=== PATIENT | female | born 1950 | race Caucasian/White ===

== ENCOUNTER → 2016-08-25 | Outpatient (CLI) | payer OTHER, MEDICARE ==
[~2016-08-25] MED LIST: ASCO1CAP3 PO; CALC500C70 PO; DIPH25CA65 PO; HYPEPOW8 NAE; MONT1TAB3 PO; MULT-506 PO; OFLO0.3D4 OT; OMEG10007 PO; SALI0.6517 NAE
--- NOTE | 2016-08-25 15:37 | MAMMOGRAPHY REPORT ---
BILATERAL DIGITAL SCREENING MAMMOGRAM WITH CAD: 08/25/2016 CLINICAL HISTORY: Routine screening. Patient has no complaints. TECHNIQUE: Bilateral CC and MLO views were obtained. Current study was also evaluated with a Compute r Aided Detection (CAD) system. COMPARISON: Comparison is made to exams dated: 08/23/2015 mammogram, 07/01/2013 mammogram, 08/22/2014 m ammogram, 06/30/2012 mammogram, 06/30/2011 mammogram, and 12/24/2009 mammogram - [facility]. BREAST COMPOSITION: The tissue of both breasts is heterogeneously dense, which may obscure small ma sses. FINDINGS: There are punctate microcalcifications in the breasts, most numerous in the left upper out er middle and posterior breast, which appear similar dating back to at least 2008, therefore likely benign. No new suspicious mass, architectural distortion or cluster of microcalcifications is seen. IMPRESSION: ACR BI-RADS CATEGORY 1: NEGATIVE There is no mammographic evidence of malignancy. A 1 year screening mammogram is recommended. The p atient will receive written notification of the results. Approximately 10% of breast cancers are not detected with mammography. A negative mammographic repor t should not delay biopsy if a clinically suggestive mass is present. Kristen Perez M.D. ay/:08/25/2016 13:44:09 Interior Design Faculty Member: Misty BAÑUELOS(R)(M), [facility] letter sent: Normal 1/2 BI-RADS Code: ACR BI-RADS Category 1: Negative
== END | disposition home or self-care (01) ==
LOC: C.MAMM 12:27
PROVIDERS: ATTEND Family Medicine
DX: Z12.31 Encounter for screening mammogram for malignant neoplasm of breast (principal)

== ENCOUNTER → 2016-10-10 | Outpatient (CLI) | payer OTHER, MEDICARE ==
[~2016-10-10] VITALS: Ht 165.1 cm; Wt 93.1 kg
[2016-10-10 16:03] VITALS: BP 137/89; PULSE 80; Ht 165.1 cm; Wt 93.1 kg
== END | disposition home or self-care (01) ==
LOC: C.NEUR 14:27
PROVIDERS: ATTEND Internal Medicine Pulmonary Disease
DX: R06.83 Snoring (principal)

== ENCOUNTER → 2016-10-27 | Outpatient (CLI) | payer OTHER, MEDICARE ==
--- NOTE | 2016-10-31 16:42 | POLYSOMNOGRAPH REPORT ---
CLINICAL DATA: A 66-year-old female with BMI of 33.8, referred by Dr. Mcdonald, Dr. Garcia and myself for an evaluation of possible sleep apnea. She does have snoring at night and breathes with her mouth open at night, awakenimg with a dry mouth. On the evening of 10/27/2016, a home sleep apnea test was performed using a [employer] type 3 monitor. RECORDING RESULTS: Total recording time was 10 hours. The patient monitoring time and estimated sleep time was 7.1 hours. RESPIRATORY DATA: Severe sleep apnea/hypopnea was documented. The ROSENDO was 48.9. There were 36 obstructive, 3 mixed, and 2 central apneic episodes. There were 308 hypopneic episodes. The longest respiratory event was 64 seconds. OXIMETRY DATA: Nocturnal hypoxemia was seen with an oxygen joseph of 73%. Mean saturation was 90%. Time below 89% was 130 minutes. HEART RATE DATA: Heart rates ranged from 58 to 73 beats per minute. SNORING DATA: Snoring was recorded throughout the night. IMPRESSION: Severe obstructive sleep apnea/hypopnea with an ROSENDO of 48.9 with nocturnal hypoxemia. RECOMMENDATIONS: The patient may benefit from a repeat sleep study with CPAP or use of auto CPAP. MTDD
== END | disposition home or self-care (01) ==
LOC: C.NEUR 08:02
PROVIDERS: ATTEND Internal Medicine Pulmonary Disease
DX: G47.33 Obstructive sleep apnea (adult) (pediatric) (principal); R06.83 Snoring

== ENCOUNTER → 2017-02-09 | Outpatient (CLI) | payer OTHER, MEDICARE ==
--- NOTE | 2017-02-10 06:22 | PAP/PSG TECHNICIAN REPORT ---
[facility] Spool Fixer Polysomnogram Report Study name: None Report date: 02/10/2017 Study date: 02/09/2017 Referring Physician: Chuckie Santoyo M.D. Name: JEANNINE MORATAYA Interpreting Physician: Chuckie Santoyo M.D. Date of : 1950 Spool Fixer: Liban Fishman RPSEDIN. Sex: Female Age: 66 StudyType: PSG PAP Weight: 204 lbs 14.5 inches Height: 66 years, Height 5' 6" Neck Circum: BMI: 32.92 Medications: BENADRYL, FISH OIL, NASONEX 50 MCG/ACT, SINGULAIR, VIT C Patient History PATIENT HAD A HOME SLEEP STUDY DONE IN OCTOBER OF 2016. SHE WAS POSITIVE FOR CARLOS WITH AN ROSENDO OF 48.9/HR WITH NOCTURNAL HYPOXEMIA. SHE IS HERE TODAY FOR A CPAP TITRATION. ESS = 4 RM 7 Parameters Monitored NPSG: E1-M2, E2-M1, Fp1-M2, Fp2-M1, F3-M2, F4-M2, F4-M1, C3-M2, C4-M2, C4-M1, O1-M2, O2-M2, O2-M1, T3-M2, T4-M1, P3-M2, P4-M1, CHIN1, CHIN2, HR, EKG, Legs, PFLOW, SNOR, FLOW, CFLOW, Tidal Volume, THOR, ABDO, SpO2, PLTH, CPRESS, ETCO2 Wave, ETCO2, pH Sleep Architecture Sleep Stages Time at Lights Off 10:58:45 PM STAGES Time (min.) TST (%) Time at Lights On 5:51:15 AM Wake 77.0 -- Total Recording Time (TRT) 412.50 min. N1 11.5 3 Total Sleep Period (TSP) 403.5 min. N2 110.5 33 Total Sleep Time (TST) 335.5min. N3 146.5 44 Awake Time 77.0 min. REM 67.0 20 Wake after Sleep Onset 68.0 min. Sleep Efficiency (SE) 81 % Sleep Onset Latency (RON) 9.0 min. Number of Stage 1 Shifts None Awakenings 28 Stage Changes 84 Number of REM periods 2 REM 67.0 20 REM Latency 191.0 min. NREM 268.5 80 Body Position Analysis Supine Right Left Side Prone Vertical Total Sleep Time (min.) 52.8 148.0 154.5 302.50 0.0 0.0 Total Sleep Time (%) 10% 44% 46% 90 0% N/A% Total Sleep Time REM (min.) 0.0 34.5 32.5 None 0.0 0.0 Total Sleep Time NREM (min.) 33.0 113.5 122.0 None 0.0 0.0 Intermittent Wake (min.) 19.8 25.2 32.0 None 0.0 0.0 Total Sleep Period (%) 11% None None None None None Arousals Myoclonus (PLM) * Events Count Index Events Count Index Spontaneous 24 4 Events Awake (PLMW) 58 45.2 Respiratory 4 1.1 Events Asleep w/ Arousal (PLMA) 9 1.6 PLM 9 2 Events Asleep w/o Arousal (PLMS) 209 37.4 Snoring 2 0 Total Asleep 218 39.0 Total 39 7 Total 276 40 Respiratory Analysis * CA OA MA CH H RERA Total Count 0 0 0 0 4 7 4 Index 0.0 0.0 0.0 0 0.7 1 2.0 Mean Duration 0.0 0.0 0.0 0.00 19.0 17.0 17.7 Longest Duration 0.0 0.0 0.0 0.00 0.0 22.6 25.6 Respiratory Event Summary Total Supine ~Supine Right Left Prone REM NREM Apneas Count 0 0 0 0 0 N/A 0 0 Index 0.0 0 0 0.0 0.0 N/A 0 0 Hypopneas (4% Desat) Count 4 1 3 1 2 N/A 0 4 Index 0.7 1.8 1 0.4 0.8 N/A 0.0 0.9 Apneas & All Hypopneas Count 4 1 3 1 2 N/A 0 4 Index 0.7 2 1 0 1 N/A 0.0 0.9 Respiratory Events (Immigration Specialist+All Hyp+RERA) Count 4 1 10 1 9 N/A 0 4 Index 2.0 2 2 0.4 3.5 N/A 0.0 2.5 Respiratory Related Arousal Count 4 1 6 0 6 N/A 0 6 Index 1.1 0 1 0 2 N/A 0 1 Snoring Analysis Supine Right Left Prone REM NREM Total Snore duration 3.3 min Snores count 4 86 30 N/A 15 105 120 Snore mean duration 1.7 Sec Snores index 7 35 12 N/A 13.4 23.5 21.5 TST with snoring (%) 1.0% Desaturation Event Summary: Minimum %SpO2 Event Count Mean/Min/Max Duration(sec.) Desaturation Index % Time In Bed > 90 9 43.9 / 18.0 / 60.0 1.7 79.5 86 - 90 0 N/A 0.0 20.3 81 - 85 0 N/A 0.0 0.1 76 - 80 0 N/A 0.0 0.0 71 - 75 0 N/A 0.0 0.0 66 - 70 0 N/A 0.0 0.0 61 - 65 0 N/A 0.0 0.0 56 - 60 0 N/A 0.0 0.0 51 - 55 0 N/A 0.0 0.0 < 50 0 N/A 0.0 0.0 Total REM NREM Awake <50% 0.0 min. 0.0 min. 0.0 min. 0.0 min. 51 - 60% 0.0 min. 0.0 min. 0.0 min. 0.0 min. 61 - 70% 0.0 min. 0.0 min. 0.0 min. 0.0 min. 71 - 80% 0.0 min. 0.0 min. 0.0 min. 0.0 min. 81 - 90% 82.2 min. 4.0 min. 72.7 min. 5.5 min. 91 - 100% 319.1 min. 63.0 min. 195.6 min. 60.5 min. Average 92 92 91 93 Minimum SpO2 81 89 87 81 Desaturation Event Index 1.3 0.0 0.7 5.5 # Desat. Events below 89% N/A N/A N/A N/A Time(%) with Saturation below 89% 0.8 0.0 0.5 0.3 Time(min.) with Saturation below 89% 3.2 0.0 2.1 1.1 Time (mins) REM (mins) NREM (mins) % of TST SpO2 Below 90% 2 N/A N2 6.9 SpO2 Below 88% 0 0 0 0 Heart Rate Analysis Min (bpm) Max (bpm) Average (bpm) Awake 50 188 71 NREM 54 127 65 REM 62 75 69 Overall 54 127 65 Supplemental O2 Values Minimum O2 level: None Value Start Time End Time Spool Fixer Comments Ms. Morataya slept in the right, left and supine positions. No cardiac arrhythmia noted. Leg movements noted. No bruxism noted. CPAP was initiated at +4 CMH2O and up-titrated to an optimal level of +8 CMH2O, which nearly eliminated all respiratory events and snoring. A Resmed Quattro Air full face size medium mask was used during titration Ms. Morataya awoke to use the restroom 2 times during the night. Ms. Morataya stated I slept as well as I do when I am in my own bed. The final report will be interpreted and signed by a sleep physician. The completed physician report will then be placed in the patient medical record. Therapy Event: Therapy (cm H20) 4 6 8 Total Time at Pressure (min.) 145.3 189.2 78.1 TST at Pressure (min.) 97.8 169.2 68.6 # Periods 1 1 1 Sleep Onset (min.) 9.0 0.0 0.0 REM Onset (min.) N/A 54.7 1.1 Sleep Efficiency % 67 89 87 Wakefulness (%) 32.7 10.6 12.2 Wakefulness (min.) 47.5 20.0 9.5 NREM 1 (%) 5.5 0.8 2.6 NREM 1 (min.) 8.0 1.5 2.0 NREM 2 (%) 31.8 25.2 21.2 NREM 2 (min.) 46.3 47.7 16.6 NREM 3 (%) 29.9 46.3 19.9 NREM 3 (min.) 43.5 87.5 15.5 REM (%) 0.0 17.2 44.2 REM (min.) 0.0 32.5 34.5 # Arousals 28 7 4 Arousal Index 17.2 2.5 3.5 # Snore 13 103 4 Snore Index 8.0 36.5 3.5 AHI 1.2 0.4 0.9 AHI Supine 0.0 N/A 1.9 AHI Non-Supine 1.3 0.4 0.0 NREM AHI 1.2 0.4 1.8 REM AHI N/A 0.0 0.0 RDI 5.5 0.4 0.9 # Obstructive 0 0 0 # Central Ap 0 0 0 # Mixed 0 0 0 # Hypopneas 2 1 1 RERAS 7 0 0 Total Respiratory Events 9 1 1 Time Below SpO2 89.00% (min.) 1.6 0.5 0.0 Mean NREM SpO2 (%) 91 92 91 Mean REM SpO2 (%) N/A 92 92 Mean Sleep SpO2 (%) 91 92 91 Min NREM SpO2 (%) 88 87 88 Min REM SpO2 (%) N/A 89 90 Position Supine (min.) 2.0 0.0 31.0 Position Non-supine (min.) 95.8 169.2 37.6 LM Index Sleep 75.5 28.4 13.1 LM Index NREM 75.5 35.1 15.8 LM Index REM N/A 0.0 10.4 Mean Heart Rate (bpm) 67 64 66 Min Heart Rate (bpm) 57 57 54
--- NOTE | 2017-02-11 16:42 | POLYSOMNOGRAPH REPORT ---
CLINICAL DATA: A 66-year-old female with BMI of 32.[address] Garcia and myself for a CPAP titration study. She had a home sleep apnea test in October 2016 which showed severe CARLOS with an ROSENDO of 48.9 with nocturnal hypoxemia. SLEEP ARCHITECTURE: Total recording time was 412.5 minutes. Total sleep period was 403.5 minutes. Total sleep time was 335.5 minutes divided between 268.5 minutes of non-REM sleep and 67 minutes of REM sleep. Sleep onset latency was 9 minutes. REM latency was 191 minutes. Sleep efficiency was 81%. Wake after sleep onset was 68 minutes. Sleep consisted of stage N1 3%, stage N2 32%, stage N3 44%, and REM 20%. AROUSAL DATA: 39 arousals were recorded for an index of 7 per hour. 24 were spontaneous arousals. PLM DATA: Elevated limb movements during sleep were noted. There were 218 limb movements during sleep noted for an index of 39 per hour with arousal index of 1.6 per hour. RESPIRATORY DATA: The AHI was 0.7. There were 4 hypopneas with a mean duration of 19 seconds. OXIMETRY DATA: Transient nocturnal hypoxemia was seen. Oxygen joseph was 87% during non-REM sleep. The mean saturation was 92%. Time below 88% was less than 1 minute. EKG: Heart rates ranged from 54-127 beats per minute. No arrhythmias were noted. TEA BAG PACKER'S COMMENTS: The patient slept in the right, left, and supine positions. She used a ResMed Quattro Air full facemask size medium. She was titrated up to 8 cm of water pressure. At her final pressure setting, she slept for 68.6 minutes with an AHI of 0.9. IMPRESSION: Severe sleep apnea/hypopnea corrected with CPAP 8 cm of water pressure using a ResMed Quattro full facemask size medium. RECOMMENDATIONS: The patient will be started on the above noted treatment regimen and seen back in followup within 90 days to document efficacy and compliance. [facility]
== END | disposition home or self-care (01) ==
LOC: C.NEUR 20:00
PROVIDERS: ATTEND Physician Assistant Medical
DX: G47.33 Obstructive sleep apnea (adult) (pediatric) (principal)

== ENCOUNTER → 2017-08-31 | Outpatient (CLI) | payer OTHER, MEDICARE ==
--- NOTE | 2017-09-01 12:57 | MAMMOGRAPHY REPORT ---
BILATERAL DIGITAL SCREENING MAMMOGRAM TOMOSYNTHESIS WITH CAD: 08/31/2017 CLINICAL HISTORY: Routine screening. Patient has no complaints. TECHNIQUE: Breast tomosynthesis in addition to standard 2D mammography was performed. Current study was also evaluated with a Computer Aided Detection (CAD) system. COMPARISON: Comparison is made to exams dated: 08/25/2016 mammogram, 08/22/2014 mammogram, 08/23/2015 mamm ogram, 07/01/2013 mammogram, 06/30/2012 mammogram, and 06/30/2011 mammogram - [facility]. BREAST COMPOSITION: The tissue of both breasts is heterogeneously dense, which may obscure small mas ses. FINDINGS: The parenchymal pattern is unchanged. No developing mass, architectural distortion or clus ter of suspicious microcalcifications is seen in either breast. IMPRESSION: ACR BI-RADS CATEGORY 2: BENIGN There is no mammographic evidence of malignancy. A 1 year screening mammogram is recommended. The pa tient will receive written notification of the results. Approximately 10% of breast cancers are not detected with mammography. A negative mammographic report should not delay biopsy if a clinically suggestive mass is present. Kristen Perez M.D. ay/:08/31/2017 15:37:49 Racebook Writer: Radha Martinez, [facility] letter sent: Normal 1/2 BI-RADS Code: ACR BI-RADS Category 2: Benign
== END | disposition home or self-care (01) ==
LOC: C.MAMM 13:13
PROVIDERS: ATTEND Family Medicine
DX: Z12.31 Encounter for screening mammogram for malignant neoplasm of breast (principal)

== ENCOUNTER → 2017-09-28 | Outpatient (CLI) | payer OTHER, MEDICARE | END | disposition home or self-care (01) | LOC: C.PAPS 12:08 | PROVIDERS: ATTEND Obstetrics & Gynecology | DX: Z12.4 Encounter for screening for malignant neoplasm of cervix (principal) ==